=== PATIENT | male | born 1980 | race Caucasian/White ===

== ENCOUNTER 2017-10-14 15:42 | Emergency (ER) | payer SELFPAY ==
[~2017-10-14] VITALS: Ht 175.3 cm; Wt 74.8 kg
[2017-10-14 15:44] VITALS: Ht 175.3 cm; Wt 74.8 kg
[2017-10-14 20:04] VITALS: BP 112/76
== END 2017-10-14 20:04 | disposition home or self-care (01) ==
LOC: ED 15:42
DX: M79.1 Myalgia (principal)